=== PATIENT | female | born 1950 | race Caucasian/White ===

== ENCOUNTER 2016-08-31 16:06 | Emergency (ER) | payer MEDICARE, OTHER ==
[2016-08-31 17:42] VITALS: BP 116/72
--- NOTE | 2016-08-31 18:05 | UC ---
Throat Pain/Nasal Reggie HPI - History of Current Complaint Chief Complaint: UCGeneralIllness Stated Complaint: SORE ON TONGUE Time Seen by Provider: 08/31/16 17:53 Hx Obtained From: Patient ?: No Onset/Duration: Sudden Onset, Lasting Weeks - 2. Was better when using abreva. Worse after stopping it., Worse Since - the last couple of days back to as bad as it was in the beginning. Severity: Mild Cough: None Associated Signs & Symptoms: Positive: Other - sore under the tip of the tongue. - Epiglottits Risk Factors Epiglottis Risk Factors: Negative - Allergies/Home Medications Allergies/Adverse Reactions: Allergies Allergy/AdvReac Type Severity Reaction Status Date / Time Cephalexin [From Keflex] Allergy Difficulty Verified 08/31/16 17:42 Breathing Home Medications: Home Medications Aspirin [Aspirin 81 MG TAB] 3 tab PO SEE INSTRUCTIONS PRN 08/31/16 [History Confirmed 08/31/16] Aspirin [Aspirin 81 MG TAB] 81 mg PO DAILY 08/31/16 [History Confirmed 08/31/16] Levothyroxine TAB* [Synthroid 25 MCG TAB*] 25 mcg PO DAILY 08/31/16 [History Confirmed 08/31/16] Losartan TAB* [Cozaar TAB*] 25 mg PO DAILY 08/31/16 [History Confirmed 08/31/16] Omeprazole CAP* [Prilosec CAP* 20 MG] 20 mg PO DAILY PRN 08/31/16 [History Confirmed 08/31/16] PMH/Surg Hx/FS Hx/Imm Hx Endocrine History Of: Reports: Thyroid Disease Cardiovascular History Of: Reports: Hypertension - Surgical History Surgical History: Yes Surgery Procedure, Year, and Place: T&A. HYSTERECTOMY - Family History Known Family History: Positive: Hypertension Negative: Cardiac Disease, Diabetes - Social History Occupation: Employed Full-time Lives: Alone Alcohol Use: Rare Substance Use Type: None Smoking Status (MU): Former Smoker Have You Smoked in the Last Year: No When Did the Patient Quit Smoking/Using Tobacco: 30 YRS AGO Review of Systems ENT: Other - tongue sore. All Other Systems Reviewed And Are Negative: Yes Physical Exam Triage Information Reviewed: Yes Appearance: Well-Appearing, No Pain Distress, Well-Nourished Vital Signs: Initial Vital Signs Temp 98.6 F 08/31/16 17:33 Pulse 70 08/31/16 17:33 Resp 16 08/31/16 17:33 BP 116/72 08/31/16 17:33 Pulse Ox 97 08/31/16 17:33 Vital Signs Reviewed: Yes Eyes: Positive: Conjunctiva Clear ENT: Positive: Pharynx normal, TMs normal, Other: - Tongue with erythematous swollen area under the tip. Neck exam: Normal Respiratory Exam: Normal Cardiovascular Exam: Normal Musculoskeletal Exam: Normal Neurological Exam: Normal Psychological Exam: Normal Skin Exam: Normal Throat Pain/Nasal Course/Dx - Differential Dx/Diagnosis Differential Diagnosis/HQI/PQRI: Laryngitis, Pharyngitis, URI Provider Diagnoses: oral ulcer Discharge - Discharge Plan Condition: Stable Disposition: HOME Prescriptions: ValACYclovir (*) [Valtrex 500 mg (*)] 500 mg PO BID #10 tab Patient Education Materials: Oral Herpes Simplex Virus Infections (ED), Valacyclovir (By mouth) Additional Instructions: If the tongue does get better with the valacyclovir you might want to get blood work for HSV Type 1 and 2 IgG and IgM.
== END 2016-08-31 18:26 | disposition home or self-care (01) ==
LOC: UCCORT 16:06
DX: K12.1 Other forms of stomatitis (principal); E07.9 Disorder of thyroid, unspecified; I10 Essential (primary) hypertension; Z88.1 Allergy status to other antibiotic agents; Z87.891 Personal history of nicotine dependence
CPT/HCPCS: 99202; G0463